=== PATIENT | female | born 1995 | race Caucasian/White ===

== ENCOUNTER 2018-01-12 13:57 | Emergency (ER) | payer BC ==
--- NOTE | 2018-01-12 16:17 | EDPHY ---
H & P Stated Complaint: ? syncope r/t autoimmune disorder issues/hurt l arm - Personal History LMP (Females 10-55): 8-14 Days Ago Current Tetanus/Diphtheria Vaccine: Yes - Medical/Surgical History Hx Asthma: No Hx Chronic Respiratory Disease: No Hx Diabetes: No Hx Cardiac Disease: No Hx Renal Disease: No Hx Cirrhosis: No Hx Alcoholism: No Hx HIV/AIDS: No Hx Splenectomy or Spleen Trauma: No Other PMH: seizure disorder - Social History Smoking Status: Never smoked Time Seen by Provider: 01/12/18 16:07 HPI/ROS: CHIEF COMPLAINT: Left forearm pain post syncopal episode HISTORY OF PRESENT ILLNESS: 22-year-old female with history of seizure disorder , history of autoimmune disorder, possibly lupus, although this has not been officially diagnosed, history of frequent episodes of near syncope, arrives via private vehicle to the ER after she had a syncopal episode when she was walking down stairs shortly prior to arrival, impacting her left ulnar forearm. She is complaining of pain at same location. She has full recollection of events and states that this did not feel like a seizure. She is familiar with her seizure disorder, has been compliant with her Keppra. States that she did not experience a postictal phase. Denies: Head injury, midline C-spine pain or injury, alcohol or drug use, straddle injury, chest pain or trauma, back pain or trauma, antecedent symptoms such as headache, dyspnea. REVIEW OF SYSTEMS: A ten point review of systems was performed and is negative with the exception of the items mentioned in the HPI PAST MEDICAL/SURGICAL HISTORY: no anticoagulant use, seizure disorder. Autoimmune disorder currently being evaluated by Rheumatology, possibly lupus. SOCIAL HISTORY: denies alcohol use at time of incident PHYSICAL EXAM 1) GENERAL: Well-developed, well-nourished, alert and oriented. Appears to be in no acute distress. Answering questions appropriately. Smiling. 2) HEAD: Normocephalic, atraumatic 3) HEENT: Pupils equal, round, reactive to light bilaterally. Negative Horners. Nasopharynx, oropharynx, clear. No deformity or angulation of nose. No septal hematoma. No rhinorrhea. No oral trauma. Ears bilaterally with normal tympanic membranes. No tongue or oral trauma. No hemotympanum. No fluid or blood in the external auditory canal. No raccoon eyes. No Braga sign. Teeth are normally aligned with no gross malocclusion, TMJ bilaterally nontender, facial bones nontender including the zygomatic arch, maxilla mandible. 4) NECK: No cervical collar is on. Posterior cervical spine is nontender, no stepoff, no effusion. Full range of motion which does not elicit any midline cervical spine pain, no posterior midline tenderness, no step-off. 5) LUNGS: Clear to auscultation bilaterally, no wheezes, no rhonchi, no retractions. No obvious signs of trauma. No chest wall pain. No flaring, no grunting. Moving symmetrically. No crepitus. 6) HEART: [Regular rate and rhythm, 7) ABDOMEN: No guarding, no rebound, no focal tenderness, no peritoneal signs, no signs of trauma, no ecchymosis 8) MUSCULOSKELETAL: Left upper extremity: Abrasion mid shaft left ulnar forearm. Associated tenderness at same location. Soft compartments. Distal radial ulnar median nerve function intact. Brisk pulses and capillary refill brisk distally. Otherwise, Moving all extremities, no focal areas of tenderness, no obvious trauma. 9) BACK: No midline vertebral tenderness, no fluctuance, no step-off, no obvious trauma, no visual or palpable abnormality. 10) SKIN: No laceration. DIFFERENTIAL DIAGNOSIS: In no particular order including but not limited to fracture, sprain, strain, dislocation, syncope, ectopic (Phani,Jeffrey Yolette) Constitutional: Initial Vital Signs Temperature (C) 36.6 C 01/12/18 14:05 Heart Rate 66 01/12/18 14:05 Respiratory Rate 17 01/12/18 14:05 Blood Pressure 132/83 H 01/12/18 14:05 O2 Sat (%) 99 01/12/18 14:05 O2 Delivery Mode Room Air Allergies/Adverse Reactions: No Known Allergies Allergy (Unverified 01/12/18 14:04) Home Medications: Medication Instructions Recorded Estradiol 01/12/18 Keppra 01/12/18 Multivit Infusion,Pedi 1,Vit K 01/12/18 NK [No Known Home Meds] 01/12/18 Medical Decision Making - Diagnostics EKG Interpretation: EKG: Complete interpretation has been separately recorded in the [employer] archive. Summary impression: Sinus rhythm, rate 81 (Rolando Venegas) Imaging Results: Imaging Impressions Forearm X-Ray 01/12/18 14:09 Impression: Mid dorsal forearm soft tissue swelling, with no acute osseous abnormality. Images reviewed myself (Jeffrey Jeronimo) Procedures: Procedure: Splint A left upper extremity Velcro volar splint was applied by ER fire range technician. After application of the splint I returned and re-examined the patient. The splint was adequately immobilizing the joint and distal to the splint the patient's circulation and sensation were intact. Patient shows no signs of compartment syndrome. Was given orthopedic precautions. (Jeffrey Jeronimo) ED Course/Re-evaluation: Serial evaluations performed on patient. Her forearm has been splinted band given referral information for Orthopedics. Regarding her ongoing rheumatologic evaluation, she has been followed by her primary care provider and has a new rheumatologic appointment in 2 weeks in [place]. She has been complaining of 7 years of near syncopal episodes. She does not think today's episode was secondary to seizure. Basic laboratory studies were obtained on the patient. She is not . She is not anemic. There is no indication for admission or further diagnostic studies from the emergency department. I recommend she also follow up with Cardiology as she notes a multiyear history of feeling near syncopal episodes. Care of patient under supervision of primary supervising physician Dr Venegas with whom I discussed case. (Jeffrey Jeronimo) Other Provider: PHYSICIAN DOCUMENTATION: The patient was evaluated and managed by the Physician Lockstitch Waistline Joiner. My co- signature indicates that I have reviewed this chart and I agree with the findings and plan of care as documented. I am the secondary supervising physician. (Rolando Venegas) - Data Points Laboratory Results: Laboratory Results 01/12/18 16:44 01/12/18 16:44 01/12/18 01/12/18 01/12/18 16:44 16:44 16:44 WBC 8.16 10^3/uL 10^3/uL (3.80-9.50) RBC 4.75 10^6/uL 10^6/uL (4.18-5.33) Hgb 14.4 g/dL g/dL (12.6-16.3) Hct 43.3 % % (38.0-47.0) MCV 91.2 fL fL (81.5-99.8) MCH 30.3 pg pg (27.9-34.1) MCHC 33.3 g/dL g/dL (32.4-36.7) RDW 11.1 % L % (11.5-15.2) Plt Count 215 10^3/uL 10^3/uL (150-400) MPV 11.0 fL fL (8.7-11.7) Neut % (Auto) 70.5 % % (39.3-74.2) Lymph % (Auto) 22.1 % % (15.0-45.0) Dane % (Auto) 5.9 % % (4.5-13.0) Eos % (Auto) 0.9 % % (0.6-7.6) Baso % (Auto) 0.5 % % (0.3-1.7) Nucleat RBC Rel Count 0.0 % % (0.0-0.2) Absolute Neuts (auto) 5.76 10^3/uL 10^3/uL (1.70-6.50) Absolute Lymphs (auto) 1.80 10^3/uL 10^3/uL (1.00-3.00) Absolute Monos (auto) 0.48 10^3/uL 10^3/uL (0.30-0.80) Absolute Eos (auto) 0.07 10^3/uL 10^3/uL (0.03-0.40) Absolute Basos (auto) 0.04 10^3/uL 10^3/uL (0.02-0.10) Absolute Nucleated RBC 0.00 10^3/uL 10^3/uL (0-0.01) Immature Gran % 0.1 % % (0.0-1.1) Immature Gran # 0.01 10^3/uL 10^3/uL (0.00-0.10) Sodium 139 mEq/L mEq/L (135-145) Potassium 4.2 mEq/L mEq/L (3.5-5.2) Chloride 101 mEq/L mEq/L (97-110) Carbon Dioxide 26 mEq/l mEq/l (22-31) Anion Gap 12 mEq/L mEq/L (8-16) BUN 14 mg/dL mg/dL (7-23) Creatinine 0.6 mg/dL mg/dL (0.6-1.0) Estimated GFR > 60 Glucose 75 mg/dL mg/dL (70-100) Calcium 9.6 mg/dL mg/dL (8.5-10.4) Beta HCG, Qual NEGATIVE Departure - Departure Disposition: Home, Routine, Self-Care Clinical Impression: Left forearm pain, Syncope and collapse Abrasion of left forearm Qualifiers: Encounter type: initial encounter Qualified Code(s): S50.812A - Abrasion of left forearm, initial encounter Condition: Good Instructions: Syncope (ED), Abrasion (ED) Additional Instructions: Return to the ER immediately if you experience discoloration, have worsening pain, numbness, tingling, or any other symptoms that concern you. If you received x-rays in the emergency department today, be advised, that ligamentous , tendon, muscular, and other non-bony injury cannot be fully ruled out. Try to keep your affected extremity elevated above the level of your chest, and keep cold packs on the affected area, for the next 48 hours. Referrals: Janice Nam MD [Primary Care Provider] - 1-2 days without fail Zuhair Cooper MD [Medical Doctor] - 5-7 days, call for appt. Siomara Villanueva MD [Medical Doctor] - 2-3 days, call for appt. (Recommend you followup with a culinary arts teacher for your fainting and near fainting episodes. Dr Villanueva is a culinary arts teacher. )
--- NOTE | 2018-01-12 16:40 | CPEKG ---
Heart Rate: 81 RR Interval: 741 P-R Interval: 148 QRSD Interval: 88 QT Interval: 352 QTC Interval: 409 P Cushing: 84 QRS Cushing: 79 T Wave Cushing: 18 EKG Severity - ABNORMAL ECG - EKG Impression: SINUS RHYTHM Electronically Signed By: Rolando Venegas 12-Jan-2018 17:02:30
[2018-01-12 16:49] LABS: PLATELET COUNT 215 10^3/uL (150-400)
[2018-01-12 17:33] VITALS: BP 129/85; PULSE 69; RESP 12; TEMP 96.8; O2SAT 96
== END 2018-01-12 17:33 | disposition home or self-care (01) ==
DX: S50.812A Abrasion of left forearm, initial encounter (principal); R55 Syncope and collapse; W10.8XXA Fall (on) (from) other stairs and steps, initial encounter
CPT/HCPCS: L3908